=== PATIENT | male | born 1960 | race Caucasian/White ===

== ENCOUNTER 2017-01-03 01:53 | Inpatient (IN) | payer OTHER ==
[~2017-01-03] VITALS: Ht 182.9 cm; Wt 86.1 kg
[~2017-01-03 01:53] MED LIST: ALPRAZOLAM0.5 MG PO; ATIVAN0.5 MG PO; DAILY VALUE1 EACH PO; DIOVAN HCT 31 TABLET PO; DIOVAN320 MG PO; DOXYCYCLINE HY100 MG PO; FAMOTIDINE20 MG PO; FOLIC ACID1 MG PO; KEFLEX250 MG PO; LEXAPRO10 MG PO; LEXAPRO5 MG PO; LIBRIUM25 MG PO; LOPRESSOR50 MG PO; METOPROLOL SUCC50 MG PO; MYCOSTATIN 100,60 ML PO; NAPROSYN500 MG PO; NEUTRA-PHOS,1 PACKET PO; NICORELIEF2 MG BC; OPTISOURCE TAB1 EAC1 PO; PANTOPRAZOLE SO40 MG PO; TOPROL XL100 MG PO; VITAMIN B-1100 MG PO
[2017-01-03 02:21] LABS: EOSINOPHIL (%) 0.9 % (0-5); EOSINOPHIL COUNT 0.1 K/uL (0-0.3); HEMATOCRIT 37.9 % (38.0-50.0); IMMATURE GRANULOCYTE (%) 0.7 % (0.0-0.7); INSTRUMENT ABS NEUTROPHIL CT 2.8 K/uL; LYMPHOCYTE COUNT 2.5 K/uL (1.0-2.8); MCH 32.7 PG (29.0-34.0); MCHC 33.8 G/DL (30.0-36.0); MCV 96.9 FL (86-99); MEAN PLAT.VOLUME 8.9 uM^3 (9.0-12.4); MONOCYTE (%) 7.8 % (3-12); MONOCYTE COUNT 0.5 K/uL (0-0.8); NEUTROPHIL (%) 47.9 % (45-76); NEUTROPHIL COUNT 2.8 K/uL (1.8-6.4); PLATELET COUNT 131 K/uL (156-360); RBC DIS.WIDTH-CV 12.7 % (11.8-14.6); RBC DIS.WIDTH-SD 45.4 % (39-53); RED BLOOD COUNT 3.91 M/uL (4.00-5.50); WHITE BLOOD COUNT 5.8 K/uL (4.1-10.2)
[2017-01-03 02:35] LABS: PROTHROMBIN TIME 10.6 (9.2-11.2); PTT 24.5 (25-32)
[2017-01-03 02:36] LABS: CHLORIDE 102 mEq/L (99-109); POTASSIUM 3.7 mEq/L (3.7-5.4); SODIUM 141 mEq/L (136-147)
[2017-01-03 02:38] LABS: GLUCOSE 96 mg/dL (70-99)
[2017-01-03 02:39] LABS: ANION GAP 14 MEQ/L (2-14)
[2017-01-03 02:41] LABS: SERUM ETHYL ALCOHOL 271 mg/dL
[2017-01-03 02:42] LABS: GFR ESTIMATE (CALCULATED) 45 mL/min/; UREA NITROGEN (BUN) 32 mg/dL (9-23)
[2017-01-03 02:44] LABS: TROP-I INTERPRETATION NEGATIVE; TROPONIN-I < 0.01 ng/mL (0.0-0.30)
[2017-01-03 03:21] LABS: HDL CHOLESTEROL 89 MG/DL (Desirable>=40); LDL CHOLESTEROL 98 mg/dL (Desirable<100); NON-HDL CHOLESTEROL 112 mg/dL (Desirable<160); TOTAL CHOLESTEROL 201 mg/dL (Desirable<200); TRIGLYCERIDES 69 MG/DL (Normal: <150)
[2017-01-03 05:25] VITALS: BP 120/70
[2017-01-03 06:19] LABS: MAGNESIUM 1.2 mg/dl (1.3-2.7); SAMPLE HEMOLYSIS CHECK 0; SAMPLE ICTERIC CHECK 0; SAMPLE LIPEMIA CHECK 0
[2017-01-03 06:48] LABS: Estimated Average Glucose 97 mg/dL (70-123)
[2017-01-03 08:15] VITALS: BP 107/62
[2017-01-03 09:17] LABS: TROP-I INTERPRETATION NEGATIVE; TROPONIN-I 0.02 ng/mL (0.0-0.30)
[2017-01-03 13:31] LABS: ADD MIUA? NO; BILIRUBIN NEGATIVE; BLOOD NEGATIVE; COLOR YELLOW ((YELLOW)); GLUCOSE (STRIP) NEGATIVE; KETONES 20; LEUKOCYTES NEGATIVE; NITRITE NEGATIVE; PROTEIN (STRIP) NEGATIVE; SPECIFIC GRAVITY 1.018 (1.000-1.030); UCUL ADDED? NO; UROBILINOGEN 0.2 MG/DL (0.2-1.0)
[2017-01-03] MEDS ORDERED: TOPROL XL50 MG PO (14:29)
[2017-01-03] MEDS ORDERED: FOLIC ACID1 MG PO (14:31)
[2017-01-03] MEDS ORDERED: DAILY VALUE1 EACH PO (14:32)
[2017-01-03] MEDS ORDERED: B-1100 MG PO (14:32)
[2017-01-03] MEDS ORDERED: CYMBALTA60 MG PO (14:33)
[2017-01-03] MEDS ORDERED: VIAGRA50 MG PO (14:33)
[2017-01-03 15:05] LABS: TROP-I INTERPRETATION NEGATIVE; TROPONIN-I 0.01 ng/mL (0.0-0.30)
[2017-01-03 19:40] VITALS: BP 122/69
[2017-01-04 00:03] VITALS: BP 126/83
[2017-01-04 04:10] VITALS: BP 129/69
[2017-01-04 06:51] LABS: EOSINOPHIL (%) 1.1 % (0-5); HEMATOCRIT 33.1 % (38.0-50.0); IMMATURE GRANULOCYTE (%) 0.5 % (0.0-0.7); INSTRUMENT ABS NEUTROPHIL CT 2.1 K/uL; LYMPHOCYTE COUNT 1.3 K/uL (1.0-2.8); MCH 32.9 PG (29.0-34.0); MCHC 33.5 G/DL (30.0-36.0); MCV 98.2 FL (86-99); MONOCYTE (%) 8.4 % (3-12); MONOCYTE COUNT 0.3 K/uL (0-0.8); NEUTROPHIL (%) 56.1 % (45-76); NEUTROPHIL COUNT 2.1 K/uL (1.8-6.4); RBC DIS.WIDTH-CV 12.9 % (11.8-14.6); RBC DIS.WIDTH-SD 45.9 % (39-53); RED BLOOD COUNT 3.37 M/uL (4.00-5.50)
[2017-01-04 06:56] LABS: WHITE BLOOD COUNT 3.8 K/uL (4.1-10.2)
[2017-01-04 07:18] LABS: TROP-I INTERPRETATION NEGATIVE; TROPONIN-I < 0.01 ng/mL (0.0-0.30)
[2017-01-04 07:30] LABS: MEAN PLAT.VOLUME 9.6 uM^3 (9.0-12.4)
[2017-01-04 07:31] LABS: PLATELET COUNT 85 K/uL (156-360)
[2017-01-04 08:00] VITALS: BP 116/71
[2017-01-04 09:07] LABS: ALKALINE PHOSPHATASE 27 IU/L (3-129); ANION GAP 9 MEQ/L (2-14); CHLORIDE 103 MEQ/L (99-109); DIRECT BILIRUBIN 0.2 mg/dL (0.0-0.3); GFR ESTIMATE (CALCULATED) > 59 mL/min/; GLUCOSE 97 mg/dL (70-99); MAGNESIUM 1.5 mg/dl (1.3-2.7); POTASSIUM 4.5 MEQ/L (3.7-5.4); SAMPLE HEMOLYSIS CHECK 0; SAMPLE ICTERIC CHECK 0; SAMPLE LIPEMIA CHECK 0; SODIUM 139 MEQ/L (136-147); TOTAL BILIRUBIN 0.7 MG/DL (0.0-1.0); UREA NITROGEN (BUN) 38 mg/dL (9-23)
[2017-01-04 15:43] VITALS: BP 123/78
[2017-01-04 19:00] VITALS: BP 140/85
[2017-01-05 00:16] VITALS: BP 136/73
[2017-01-05 04:02] VITALS: BP 119/69
[2017-01-05 07:33] LABS: EOSINOPHIL (%) 1.7 % (0-5); EOSINOPHIL COUNT 0.1 K/uL (0-0.3); HEMATOCRIT 36.4 % (38.0-50.0); IMMATURE GRANULOCYTE (%) 0.3 % (0.0-0.7); INSTRUMENT ABS NEUTROPHIL CT 2.1 K/uL; LYMPHOCYTE COUNT 1.2 K/uL (1.0-2.8); MCH 32.7 PG (29.0-34.0); MCHC 33.8 G/DL (30.0-36.0); MCV 96.8 FL (86-99); MEAN PLAT.VOLUME 9.2 uM^3 (9.0-12.4); MONOCYTE (%) 6.4 % (3-12); MONOCYTE COUNT 0.2 K/uL (0-0.8); NEUTROPHIL (%) 57.8 % (45-76); NEUTROPHIL COUNT 2.1 K/uL (1.8-6.4); PLATELET COUNT 95 K/uL (156-360); RBC DIS.WIDTH-CV 12.3 % (11.8-14.6); RBC DIS.WIDTH-SD 43.8 % (39-53); RED BLOOD COUNT 3.76 M/uL (4.00-5.50); WHITE BLOOD COUNT 3.6 K/uL (4.1-10.2)
[2017-01-05 07:41] VITALS: BP 119/77
[2017-01-05 07:58] LABS: ALKALINE PHOSPHATASE 31 IU/L (3-129); ANION GAP 10 MEQ/L (2-14); CHLORIDE 99 MEQ/L (99-109); GFR ESTIMATE (CALCULATED) > 59 mL/min/; GLUCOSE 92 mg/dL (70-99); MAGNESIUM 1.4 mg/dl (1.3-2.7); POTASSIUM 3.8 MEQ/L (3.7-5.4); SAMPLE HEMOLYSIS CHECK 0; SAMPLE ICTERIC CHECK 0; SAMPLE LIPEMIA CHECK 0; SODIUM 137 MEQ/L (136-147); TOTAL BILIRUBIN 0.7 MG/DL (0.0-1.0); UREA NITROGEN (BUN) 26 mg/dL (9-23)
[2017-01-05] MEDS ORDERED: ENDOCET 5-3251 EACH PO (08:17)
[2017-01-05] MEDS ORDERED: NAPROXEN500 MG PO (08:17)
[2017-01-05] MEDS ORDERED: METOPROLOL SUCC50 MG PO (10:32)
== END 2017-01-05 11:55 | disposition home or self-care (01) | DRG 897 ==
LOC: EME 01:53 → EDOF 04:22 → 4EAST 04:22
PROVIDERS: Emergency Medicine; Internal Medicine; Internal Medicine Cardiovascular Disease; Physician Assistant; Student in an Organized Health Care Education/Training Program
DX: F10.239 Alcohol dependence with withdrawal, unspecified (principal); N17.9 Acute kidney failure, unspecified; D69.6 Thrombocytopenia, unspecified; I95.9 Hypotension, unspecified; R55 Syncope and collapse; E86.0 Dehydration; S02.2XXA Fracture of nasal bones, initial encounter for closed fracture; E78.5 Hyperlipidemia, unspecified; I10 Essential (primary) hypertension; F32.9 Major depressive disorder, single episode, unspecified; Z72.0 Tobacco use; I44.4 Left anterior fascicular block
CPT/HCPCS: 70450; 70486; 71010; 72125; 80048; 80053; 80061; 80076; 81003; 83036; 83735; 84100; 84484; 85025; 85610; 85730; 93005; 99281; 99285; G0480; J1650; J2060; J3360; J3411; J3475; J7030

== ENCOUNTER 2017-01-28 20:05 | Emergency (ER) | payer OTHER ==
[~2017-01-28] VITALS: Ht 182.9 cm; Wt 84.6 kg
[~2017-01-28 20:05] MED LIST changes: +B-1100 MG PO; +CYMBALTA60 MG PO; +ENDOCET 5-3251 EACH PO; +NAPROXEN500 MG PO; +TOPROL XL50 MG PO; +VIAGRA50 MG PO
[2017-01-28 23:10] VITALS: BP 110/66
== END 2017-01-28 23:12 | disposition home or self-care (01) ==
LOC: EME → EDBD 20:05 → EME 23:12
DX: S01.81XA Laceration without foreign body of other part of head, initial encounter (principal); S00.81XA Abrasion of other part of head, initial encounter; W19.XXXA Unspecified fall, initial encounter; I10 Essential (primary) hypertension; Z98.1 Arthrodesis status
CPT/HCPCS: 70450; 70486; 72125; 99281; 99284

== ENCOUNTER 2017-04-29 16:48 | Emergency (ER) | payer OTHER ==
[~2017-04-29] VITALS: Ht 182.9 cm; Wt 94.8 kg
[2017-04-29 17:30] LABS: HEMATOCRIT 48.7 % (38.0-50.0); MCH 30.8 PG (29.0-34.0); MCHC 33.5 G/DL (30.0-36.0); MCV 92.1 FL (86-99); MEAN PLAT.VOLUME 8.6 uM^3 (9.0-12.4); RBC DIS.WIDTH-CV 12.4 % (11.8-14.6); RBC DIS.WIDTH-SD 41.6 % (39-53); RED BLOOD COUNT 5.29 M/uL (4.00-5.50); WHITE BLOOD COUNT 8.4 K/uL (4.1-10.2)
[2017-04-29 17:37] LABS: CHLORIDE 95 mEq/L (99-109); POTASSIUM 4.4 mEq/L (3.7-5.4); SODIUM 136 mEq/L (136-147)
[2017-04-29 17:38] LABS: GLUCOSE 77 mg/dL (70-99)
[2017-04-29 17:40] LABS: ANION GAP 22 MEQ/L (2-14); PLATELET COUNT 96 K/uL (156-360)
[2017-04-29 17:42] LABS: GFR ESTIMATE (CALCULATED) 51 mL/min/
[2017-04-29 17:43] LABS: UREA NITROGEN (BUN) 35 mg/dL (9-23)
[2017-04-29] MEDS ORDERED: ATIVAN1 MG PO (20:05)
[2017-04-29 22:41] VITALS: BP 156/92
== END 2017-04-29 22:42 | disposition home or self-care (01) ==
LOC: EME 16:48
PROVIDERS: Emergency Medicine
DX: E86.0 Dehydration (principal); F10.239 Alcohol dependence with withdrawal, unspecified; E87.2 Acidosis; I10 Essential (primary) hypertension; Z98.1 Arthrodesis status
CPT/HCPCS: 80048; 85027; 93005; 99281; 99284; J7030